=== PATIENT | female | born 1960 | race Hispanic/Latino ===

== ENCOUNTER 2018-07-31 22:54 | Emergency (ER) | payer OTHER ==
[2018-07-31] MEDS ORDERED: SODIUM CHLORIDE 0.9% 1000ML 1,000 ML IV ONE (23:16)
[2018-07-31] MEDS ORDERED: MORPHINE SULFATE 4 MG/1ML SYG ONE (23:16)
[2018-07-31] MEDS ORDERED: ONDANSETRON HCL 4 MG/2 ML VIAL ONE (23:16)
[2018-07-31 23:19] LABS: BASOPHILS % (AUTO) 0.8 % (0.0-5.0); EOSINOPHILS % (AUTO) 1.6 % (0.0-8.0); HEMATOCRIT 35.2 % (36-48); MEAN CORPUSCULAR HEMOGLOBIN 29.2 pg (27.0-33.0); MEAN CORPUSCULAR HGB CONC 34.1 g/dL (32.0-36.0); MEAN CORPUSCULAR VOLUME 85.5 fL (79-99); MONOCYTES % (AUTO) 8.2 % (3.0-13.0); NEUTROPHILS % (AUTO) 60.4 % (40.0-77.0); PLATELET COUNT (AUTO) 224 K/uL (130-400); RED BLOOD CELL COUNT(AUTO) 4.11 MIL/uL (4.00-5.50); RED CELL DISTRIBUTION WIDTH 14.4 % (11.0-15.5); WHITE BLOOD COUNT (AUTO) 9.4 K/uL (4.8-10.8)
[2018-07-31 23:26] LABS: APPEARANCE,URINE Clear (CLEAR); BILIRUBIN,URINE Negative (NEGATIVE); COLOR,URINE Yellow (YELLOW); GLUCOSE, URINE (UA) >=1000 mg/dL (NEGATIVE); KETONES,URINE Negative (NEGATIVE); LEUKOCYTE ESTERASE ,URINE Trace (NEGATIVE); NITRATE,URINE Negative (NEGATIVE); OCCULT BLOOD,URINE Moderate (NEGATIVE); PROTEIN,URINE >=1000 mg/dL (NEGATIVE)
[2018-07-31 23:28] LABS: CREATININE 0.8 mg/dL (0.5-1.5); POTASSIUM 4.2 mmol/L (3.5-5.1)
[2018-07-31 23:33] LABS: ALBUMIN 2.9 g/dL (3.5-5.0); BILIRUBIN,TOTAL 0.3 mg/dL (0.2-1.0); TOTAL PROTEIN, SERUM 6.6 g/dL (6.0-8.3)
[2018-07-31 23:34] LABS: INR 0.91 (0.85-1.15); PARTIAL THROMBOPLASTIN TIME 24.9 SEC (26.3-35.5); PROTHROMBIN TIME 9.6 SEC (9.6-11.6)
[2018-07-31 23:40] LABS: BACTERIA,URINE Few /HPF (None Seen); MUCUS,URINE Moderate LPF (None Seen); RENAL EPITHELIAL CELLS,URINE Moderate /HPF (None Seen); SQUAMOUS EPITHELIAL CELL,UR Moderate /HPF (0-2); TRANSITIONAL EPI CELLS,URINE Few /HPF (None Seen)
[2018-08-01] MEDS ORDERED: ONDANSETRON HCL 4 MG/2 ML VIAL ONE (02:31)
[2018-08-01] MEDS ORDERED: MORPHINE SULFATE 2 MG/ML 1ML SYG ONE (02:31)
== END 2018-08-01 03:59 | disposition home or self-care (01) ==
LOC: EDH 22:54
DX: S20.219A Contusion of unspecified front wall of thorax, initial encounter (principal); S10.81XA Abrasion of other specified part of neck, initial encounter; Z85.3 Personal history of malignant neoplasm of breast; V49.49XA Driver injured in collision with other motor vehicles in traffic accident, initial encounter; Y93.89 Activity, other specified; Y92.488 Other paved roadways as the place of occurrence of the external cause; Y99.8 Other external cause status
CPT/HCPCS: 36415 ×2; 70450; 71260; 72125; 74177; 80053; 81001; 82550 ×2; 83690; 84484 ×2; 85025; 85610; 85730; 93005 ×2; 96374; 96375; 96376; 99285; J2270; J2405 ×2; J7030

== ENCOUNTER 2020-12-19 14:22 | Emergency (ER) | payer MEDICAID ==
[~2020-12-19] VITALS: Ht 157.5 cm; Wt 83.5 kg
[2020-12-19 16:22] LABS: HEMATOCRIT 41.9 % (36-48); MEAN CORPUSCULAR HEMOGLOBIN 29.8 pg (27.0-33.0); MEAN CORPUSCULAR HGB CONC 33.9 g/dL (32.0-36.0); MEAN CORPUSCULAR VOLUME 87.8 fL (79-99); PLATELET COUNT (AUTO) 263 K/uL (130-400); RED BLOOD CELL COUNT(AUTO) 4.77 MIL/uL (4.00-5.50); RED CELL DISTRIBUTION WIDTH 12.6 % (11.0-15.5); WHITE BLOOD COUNT (AUTO) 11.7 K/uL (4.8-10.8)
[2020-12-19 16:40] LABS: CREATININE 0.7 mg/dL (0.5-1.5); POTASSIUM 4.9 mmol/L (3.5-5.1)
[2020-12-19 16:45] LABS: ALBUMIN 2.7 g/dL (3.5-5.0); BILIRUBIN,TOTAL 0.2 mg/dL (0.2-1.0); TOTAL PROTEIN, SERUM 7.1 g/dL (6.0-8.3)
[2020-12-19 17:35] LABS: BAND NEUTROPHILS % (MANUAL) 13 % (0-2); LYMPHOCYTES % (MANUAL) 5 % (22-44); MAN.DIFF COMMENT-IMPRESSION MANUAL DIFFERENTIAL; MONOCYTES % (MANUAL) 6 % (2-9); REACTIVE LYMPHOCYTES 6 % (0-0); SEGMENTED NEUTROPHILS % 70 % (40-70)
[2020-12-19] MEDS ORDERED: 0.9%NACL 1000ML 1,000 ML IV ONE (18:00)
[2020-12-19] MEDS ORDERED: LORAZEPAM 2 MG/ML 1 ML VIAL IVP ONE (18:00)
[2020-12-19] MEDS ORDERED: MECL-226 PO (19:41)
[2020-12-19 20:35] VITALS: BP 138/72
== END 2020-12-19 20:25 | disposition home or self-care (01) ==
LOC: EDH 14:22
DX: R42 Dizziness and giddiness (principal); R11.0 Nausea; E11.9 Type 2 diabetes mellitus without complications; E78.00 Pure hypercholesterolemia, unspecified; I10 Essential (primary) hypertension; Z79.899 Other long term (current) drug therapy; Z85.3 Personal history of malignant neoplasm of breast; Z90.11 Acquired absence of right breast and nipple
CPT/HCPCS: 36415; 71045; 80053; 82948; 85025; 93005; 96360; 96361; 99285; J7030

== ENCOUNTER 2022-04-11 10:49 | Emergency (ER) | payer MEDICAID ==
[~2022-04-11] VITALS: Ht 160 cm; Wt 72.6 kg
[~2022-04-11 10:49] MED LIST: MECL-226 PO
[2022-04-11 11:27] LABS: BASOPHILS % (AUTO) 0.6 % (0.0-5.0); EOSINOPHILS % (AUTO) 1.6 % (0.0-8.0); HEMATOCRIT 37.4 % (36-48); LYMPHOCYTES % (AUTO) 30.4 % (21.0-51.0); MEAN CORPUSCULAR HEMOGLOBIN 29.2 pg (27.0-33.0); MONOCYTES % (AUTO) 7.1 % (3.0-13.0); PLATELET COUNT (AUTO) 253 K/uL (130-400); RED BLOOD CELL COUNT(AUTO) 4.35 MIL/uL (4.00-5.50); RED CELL DISTRIBUTION WIDTH 12.4 % (11.0-15.5); WHITE BLOOD COUNT (AUTO) 9.7 K/uL (4.8-10.8)
[2022-04-11] MEDS ORDERED: KETOROLAC 15MG/ML VIAL (15MG/ML) IV ONE (11:30)
[2022-04-11 11:41] LABS: POTASSIUM 4.2 mmol/L (3.5-5.1)
[2022-04-11 11:45] LABS: ALBUMIN 2.7 g/dL (3.5-5.0); TOTAL PROTEIN, SERUM 6.8 g/dL (6.0-8.3)
[2022-04-11 12:32] LABS: INR 0.93 (0.85-1.15); PROTHROMBIN TIME 9.8 SEC (9.6-11.6)
[2022-04-11 12:33] LABS: PARTIAL THROMBOPLASTIN TIME 25.1 SEC (26.3-35.5)
[2022-04-11] MEDS ORDERED: IBUP-2070 PO (12:58)
[2022-04-11 13:09] VITALS: BP 145/78
== END 2022-04-11 13:29 | disposition home or self-care (01) ==
LOC: EDH 10:49
DX: R51.9 Headache, unspecified (principal); E11.9 Type 2 diabetes mellitus without complications; I10 Essential (primary) hypertension; E78.00 Pure hypercholesterolemia, unspecified; Z85.3 Personal history of malignant neoplasm of breast; Z90.11 Acquired absence of right breast and nipple; Z98.890 Other specified postprocedural states
CPT/HCPCS: 99285; 96374; 70450; 71045; 82550; 83721; 84484; 80053; 85025; 85610; 85730; 36415; 93005; J1885

== ENCOUNTER 2023-01-03 12:05 | Emergency (ER) | payer MEDICAID ==
[~2023-01-03] VITALS: Ht 157.5 cm; Wt 79.4 kg
[~2023-01-03 12:05] MED LIST changes: +IBUP-2070 PO
[2023-01-03 12:14] VITALS: BP 181/87; PULSE 85; RESP 16; O2SAT 99
[2023-01-03] MEDS ORDERED: TETANUS/DIPHTHERIA TOXOID [ADULT] 0.5 ML VIAL IM ONE (12:30)
[2023-01-03] MEDS ORDERED: CEFTRIAXONE 1G VIAL IM ONE (14:00)
[2023-01-03] MEDS ORDERED: CEPH500B PO (16:14)
[2023-01-03] MEDS ORDERED: MUPI22O TP (16:14)
[2023-01-03] MEDS ORDERED: BACITRACIN 1 EACH PACKET TP ONE (16:39)
== END 2023-01-03 16:59 | disposition home or self-care (01) ==
LOC: EDH 12:05
DX: L03.115 Cellulitis of right lower limb (principal); E11.9 Type 2 diabetes mellitus without complications; E78.00 Pure hypercholesterolemia, unspecified; I10 Essential (primary) hypertension; Z85.3 Personal history of malignant neoplasm of breast
CPT/HCPCS: 99284; 90714; 73590; 96372; 90471; J0696

== ENCOUNTER 2023-01-16 11:19 | Emergency (ER) | payer MEDICAID ==
[~2023-01-16] VITALS: Ht 157.5 cm; Wt 78.9 kg
[~2023-01-16 11:19] MED LIST changes: +CEPH500B PO; +MUPI22O TP
[2023-01-16] MEDS ORDERED: KETOROLAC 30MG VIAL (30MG/ML) IV ONE (12:00)
[2023-01-16] MEDS ORDERED: HYDROCODONE/ACETAMINOPHEN 5/325 MG TAB PO ONE (12:00)
[2023-01-16] MEDS ORDERED: HYDRALAZINE 20MG/ML VIAL IV ONE (12:00)
[2023-01-16 12:41] LABS: BASOPHILS # (AUTO) 0.05 K/uL (0.00-0.20); BASOPHILS % (AUTO) 0.4 % (0.0-5.0); EOSINOPHILS # (AUTO) 0.12 K/uL (0.00-0.70); EOSINOPHILS % (AUTO) 1.1 % (0.0-8.0); HEMATOCRIT 35.3 % (36-48); IMMATURE GRANULOCYTE ABSOLUTE 0.03 K/uL (0-1); LYMPHOCYTES # (AUTO) 2.2 K/uL (1.0-4.8); LYMPHOCYTES % (AUTO) 19.8 % (21.0-51.0); MEAN CORPUSCULAR HEMOGLOBIN 30.1 pg (27.0-33.0); MEAN CORPUSCULAR HGB CONC 33.7 g/dL (32.0-36.0); MEAN CORPUSCULAR VOLUME 89.1 fL (79-99); MONOCYTES # (AUTO) 0.9 K/uL (0.1-1.0); MONOCYTES % (AUTO) 7.7 % (3.0-13.0); NEUTROPHILS % (AUTO) 70.7 % (40.0-77.0); PLATELET COUNT (AUTO) 292 K/uL (130-400); RED BLOOD CELL COUNT(AUTO) 3.96 MIL/uL (4.00-5.50); RED CELL DISTRIBUTION WIDTH 12.7 % (11.0-15.5); WHITE BLOOD COUNT (AUTO) 11.3 K/uL (4.8-10.8)
[2023-01-16 12:51] LABS: CREATININE 0.9 mg/dL (0.5-1.5)
[2023-01-16 12:56] LABS: ALBUMIN 2.9 g/dL (3.5-5.0); BILIRUBIN,TOTAL 0.2 mg/dL (0.2-1.0); TOTAL PROTEIN, SERUM 6.9 g/dL (6.0-8.3)
[2023-01-16] MEDS ORDERED: ACET-2079 PO (13:14)
[2023-01-16 13:20] LABS: B-TYPE NATRIURETIC PEPTIDE 98 pg/mL (0-100)
[2023-01-16 13:42] VITALS: BP 141/67; PULSE 86; RESP 16; O2SAT 100
[2023-01-17] MEDS ORDERED: HYDR-3420 PO (22:39)
== END 2023-01-16 18:15 | disposition home or self-care (01) ==
LOC: EDH 11:19
DX: S80.811A Abrasion, right lower leg, initial encounter (principal); I16.0 Hypertensive urgency; E11.9 Type 2 diabetes mellitus without complications; E78.00 Pure hypercholesterolemia, unspecified; Z79.899 Other long term (current) drug therapy; Z98.890 Other specified postprocedural states; X58.XXXA Exposure to other specified factors, initial encounter; Y93.89 Activity, other specified; Y92.89 Other specified places as the place of occurrence of the external cause; Y99.8 Other external cause status
CPT/HCPCS: 99285; 96374; 71045; 96375; 84484; 80053; 83880; 85025; 36415; 93005; J0360; J1885

== ENCOUNTER 2023-01-17 18:24 | Emergency (ER) | payer MEDICAID ==
[~2023-01-17] VITALS: Ht 157.5 cm; Wt 78.9 kg
[~2023-01-17 18:24] MED LIST changes: +ACET-2079 PO
[2023-01-17 19:09] LABS: BASOPHILS # (AUTO) 0.07 K/uL (0.00-0.20); BASOPHILS % (AUTO) 0.7 % (0.0-5.0); EOSINOPHILS % (AUTO) 2.1 % (0.0-8.0); IMMATURE GRANULOCYTE ABSOLUTE 0.02 K/uL (0-1); LYMPHOCYTES # (AUTO) 2.7 K/uL (1.0-4.8); LYMPHOCYTES % (AUTO) 28.2 % (21.0-51.0); MEAN CORPUSCULAR HEMOGLOBIN 30.3 pg (27.0-33.0); MEAN CORPUSCULAR HGB CONC 34.6 g/dL (32.0-36.0); MEAN CORPUSCULAR VOLUME 87.5 fL (79-99); MONOCYTES # (AUTO) 0.8 K/uL (0.1-1.0); MONOCYTES % (AUTO) 8.3 % (3.0-13.0); NEUTROPHILS # (AUTO) 5.7 K/uL (1.8-7.7); NEUTROPHILS % (AUTO) 60.5 % (40.0-77.0); PLATELET COUNT (AUTO) 285 K/uL (130-400); RED CELL DISTRIBUTION WIDTH 12.4 % (11.0-15.5); WHITE BLOOD COUNT (AUTO) 9.4 K/uL (4.8-10.8)
[2023-01-17 19:18] LABS: CREATININE 0.7 mg/dL (0.5-1.5); POTASSIUM 4.4 mmol/L (3.5-5.1)
[2023-01-17 19:25] LABS: ALBUMIN 2.5 g/dL (3.5-5.0); BILIRUBIN,TOTAL 0.3 mg/dL (0.2-1.0); TOTAL PROTEIN, SERUM 6.7 g/dL (6.0-8.3)
[2023-01-17] MEDS ORDERED: HYDRALAZINE 20MG/ML VIAL IV ONE (21:00)
[2023-01-17 21:05] LABS: APPEARANCE,URINE CLEAR (CLEAR); BILIRUBIN,URINE NEGATIVE (NEGATIVE); COLOR,URINE COLORLESS (YELLOW); GLUCOSE, URINE (UA) 50 mg/dL (NEGATIVE); KETONES,URINE NEGATIVE (NEGATIVE); LEUKOCYTE ESTERASE ,URINE NEGATIVE Leu/uL (NEGATIVE); NITRATE,URINE NEGATIVE (NEGATIVE); OCCULT BLOOD,URINE NEGATIVE (NEGATIVE); PROTEIN,URINE 100 mg/dL (NEGATIVE); UROBILINOGEN,URINE 0.2 mg/dL (0.2-1.0)
[2023-01-17 21:06] LABS: ADD UA MICROSCOPIC YES
[2023-01-17 21:09] LABS: BACTERIA,URINE RARE /HPF (None Seen); SQUAMOUS EPITHELIAL CELL,UR FEW /HPF (0-2); TRANSITIONAL EPI CELLS,URINE RARE /HPF (None Seen)
[2023-01-17 21:47] LABS: MAGNESIUM 1.7 mg/dL (1.80-2.40); THYROID STIMULATING HORMONE 4.83 uIU/mL (0.36-3.74)
[2023-01-17 22:33] VITALS: BP 126/66; PULSE 82; RESP 18; O2SAT 98
[2023-01-17] MEDS ORDERED: HYDR-3420 PO (22:39)
[2023-01-17] MEDS ORDERED: MAGNESIUM OXIDE 400 MG TABLET PO ONE (23:00)
== END 2023-01-17 22:56 | disposition home or self-care (01) ==
LOC: EDH 18:24
DX: I10 Essential (primary) hypertension (principal); E83.42 Hypomagnesemia; E11.9 Type 2 diabetes mellitus without complications; E78.00 Pure hypercholesterolemia, unspecified; Z79.899 Other long term (current) drug therapy; Z98.890 Other specified postprocedural states
CPT/HCPCS: 99285; 96374; 71045; 84443; 83735; 84484; 80053; 85025; 81001; 36415; 93005; J0360

== ENCOUNTER 2023-01-20 11:25 | Emergency (ER) | payer MEDICAID ==
[~2023-01-20] VITALS: Ht 157.5 cm; Wt 72.6 kg
[~2023-01-20 11:25] MED LIST changes: +HYDR-3420 PO
[2023-01-20 11:36] VITALS: O2SAT 100
[2023-01-20 11:38] VITALS: BP 151/72; PULSE 76; RESP 16
== END 2023-01-20 13:55 | disposition home or self-care (01) ==
LOC: EDH 11:25
DX: I10 Essential (primary) hypertension (principal); F41.9 Anxiety disorder, unspecified; E11.9 Type 2 diabetes mellitus without complications; E78.00 Pure hypercholesterolemia, unspecified; Z85.3 Personal history of malignant neoplasm of breast
CPT/HCPCS: 99281

== ENCOUNTER 2023-06-01 12:36 | Emergency (ER) | payer MEDICAID ==
[~2023-06-01] VITALS: Ht 162.6 cm; Wt 81.6 kg
[2023-06-01 13:22] LABS: BASOPHILS # (AUTO) 0.04 K/uL (0.00-0.20); BASOPHILS % (AUTO) 0.4 % (0.0-5.0); EOSINOPHILS # (AUTO) 0.09 K/uL (0.00-0.70); HEMATOCRIT 37.4 % (36-48); IMMATURE GRANULOCYTE ABSOLUTE 0.04 K/uL (0-1); LYMPHOCYTES # (AUTO) 1.3 K/uL (1.0-4.8); MEAN CORPUSCULAR VOLUME 88.2 fL (79-99); MONOCYTES # (AUTO) 0.6 K/uL (0.1-1.0); MONOCYTES % (AUTO) 5.9 % (3.0-13.0); NEUTROPHILS # (AUTO) 7.3 K/uL (1.8-7.7); NEUTROPHILS % (AUTO) 78.3 % (40.0-77.0); PLATELET COUNT (AUTO) 255 K/uL (130-400); RED BLOOD CELL COUNT(AUTO) 4.24 MIL/uL (4.00-5.50); RED CELL DISTRIBUTION WIDTH 12.4 % (11.0-15.5); WHITE BLOOD COUNT (AUTO) 9.3 K/uL (4.8-10.8)
[2023-06-01 13:27] LABS: CREATININE 0.8 mg/dL (0.5-1.0); POTASSIUM 4.4 mmol/L (3.5-5.1)
[2023-06-01 13:34] LABS: ALBUMIN 2.6 g/dL (3.5-5.0); BILIRUBIN,TOTAL 0.3 mg/dL (0.2-1.0); MAGNESIUM 1.5 mg/dL (1.80-2.40); TOTAL PROTEIN, SERUM 6.7 g/dL (6.0-8.3)
[2023-06-01] MEDS: MAGNESIUM 2GM PREMIX 50ML 50 ML IV SCH (13:52)
[2023-06-01] MEDS: ONDANSETRON 4MG INJ IVP ONE (14:11)
[2023-06-01] MEDS: LACTATED RINGERS 1000ML 1,000 ML IV ONE (14:11)
[2023-06-01] MEDS ORDERED: IOHEXOL 350 MG/ML 100ML INFUS..BTL IV ONE (14:48)
[2023-06-01] MEDS ORDERED: MECL-160 PO (19:05)
[2023-06-01] MEDS ORDERED: AMLO-257 PO (19:05)
[2023-06-01 19:07] LABS: APPEARANCE,URINE CLEAR (CLEAR); BILIRUBIN,URINE NEGATIVE (NEGATIVE); GLUCOSE, URINE (UA) TRACE mg/dL (NEGATIVE); KETONES,URINE NEGATIVE (NEGATIVE); LEUKOCYTE ESTERASE ,URINE NEGATIVE Leu/uL (NEGATIVE); NITRATE,URINE NEGATIVE (NEGATIVE); PH,URINE 6.5 (5.0-8.0); PROTEIN,URINE 100 mg/dL (NEGATIVE); UROBILINOGEN,URINE 0.2 mg/dL (0.2-1.0)
[2023-06-01 19:08] LABS: ADD UA MICROSCOPIC YES; COLOR,URINE STRAW (YELLOW)
[2023-06-01 19:10] LABS: BACTERIA,URINE RARE /HPF (None Seen); SQUAMOUS EPITHELIAL CELL,UR RARE /HPF (0-2)
[2023-06-01] MEDS: AMLODIPINE 5 MG TAB PO ONE (19:22)
[2023-06-01] MEDS: NITROGLYCERIN 1GM OINT 1 INCH/1GM TD ONE (20:16)
[2023-06-01 21:37] VITALS: BP 133/75; PULSE 81; RESP 18; O2SAT 97
== END 2023-06-01 22:24 | disposition left against medical advice (07) ==
LOC: EDH 12:36
DX: I67.4 Hypertensive encephalopathy (principal); I16.1 Hypertensive emergency; I10 Essential (primary) hypertension; E11.9 Type 2 diabetes mellitus without complications; E78.00 Pure hypercholesterolemia, unspecified; Z85.3 Personal history of malignant neoplasm of breast
CPT/HCPCS: 99285; 74177; 96365; 71045; 96366; 96375; 83735; 84484; 80053; 85025; 81001; 36415; 93005; J3475; J7120; J2405; Q9967

== ENCOUNTER 2023-08-27 11:57 | Emergency (ER) | payer MEDICAID ==
[~2023-08-27] VITALS: Ht 157.5 cm; Wt 79.8 kg
[~2023-08-27 11:57] MED LIST changes: +AMLO-257 PO; +MECL-302 PO
[2023-08-27] MEDS: HYDRALAZINE 20MG/ML VIAL IV STA (12:21)
[2023-08-27 12:49] LABS: BASOPHILS # (AUTO) 0.06 K/uL (0.00-0.20); BASOPHILS % (AUTO) 0.7 % (0.0-5.0); EOSINOPHILS % (AUTO) 2.3 % (0.0-8.0); HEMATOCRIT 36.4 % (36-48); IMMATURE GRANULOCYTE ABSOLUTE 0.03 K/uL (0-1); LYMPHOCYTES # (AUTO) 2.4 K/uL (1.0-4.8); MEAN CORPUSCULAR HEMOGLOBIN 29.9 pg (27.0-33.0); MEAN CORPUSCULAR HGB CONC 35.2 g/dL (32.0-36.0); MONOCYTES # (AUTO) 0.6 K/uL (0.1-1.0); MONOCYTES % (AUTO) 7.1 % (3.0-13.0); NEUTROPHILS # (AUTO) 5.3 K/uL (1.8-7.7); NEUTROPHILS % (AUTO) 61.6 % (40.0-77.0); PLATELET COUNT (AUTO) 270 K/uL (130-400); RED BLOOD CELL COUNT(AUTO) 4.28 MIL/uL (4.00-5.50); RED CELL DISTRIBUTION WIDTH 12.5 % (11.0-15.5); WHITE BLOOD COUNT (AUTO) 8.6 K/uL (4.8-10.8)
[2023-08-27 13:08] LABS: POTASSIUM 4.1 mmol/L (3.5-5.1)
[2023-08-27 13:25] LABS: B-TYPE NATRIURETIC PEPTIDE 17 pg/mL (0-100)
[2023-08-27 15:17] VITALS: BP 141/75; PULSE 74; RESP 20; O2SAT 98
[2023-08-31] MEDS ORDERED: LISI1TAB53 PO (15:05)
[2023-08-31] MEDS ORDERED: AMLO-258 PO (15:05)
[2023-08-31] MEDS ORDERED: ATOR-2 PO (15:05)
[2023-08-31] MEDS ORDERED: INSU100I3 SQ (15:07)
== END 2023-08-27 15:38 | disposition home or self-care (01) ==
LOC: EDH 11:57
DX: R51.9 Headache, unspecified (principal); I10 Essential (primary) hypertension; E11.9 Type 2 diabetes mellitus without complications; E78.00 Pure hypercholesterolemia, unspecified; Z79.899 Other long term (current) drug therapy; Z98.890 Other specified postprocedural states
CPT/HCPCS: 36415; 70450; 71045; 80048; 83880; 84484; 85025; 93005

== ENCOUNTER 2024-03-28 13:21 | Emergency (ER) | payer MEDICAID ==
[~2024-03-28] VITALS: Ht 154.9 cm; Wt 78.5 kg
[~2024-03-28 13:21] MED LIST changes: -ACET-2079 PO; -AMLO-257 PO; +ATOR-2 PO; -CEPH500B PO; -HYDR-3420 PO; -IBUP-2070 PO; +INSU100I3 SQ; +LEVO-70 PO; +LOSA-418 PO; -MECL-226 PO; +NIFE-40 PO; +TRAZ-253 PO
--- NOTE | 2024-03-28 13:48 | ERN ---
ED Note History of Present Illness Stated Complaint: HIGH BLOOD PRESSURE Chief Complaint: Hypertension Time Seen by MD: 13:23 Dictation: Patient is a 63-year-old female with a past medical history of diabetes type 2, hyperlipidemia, hypertension, CKD who presented to the ER complaining of blood pressure reading systolic above 200 at home. The patient recently was started/change medication for blood pressure she was confused which medication to take. She did says that she took some of her medication but no all. She is taking nifedipine 60 mg, losartan 50 mg, hydralazine and medication for kidney kidney disease also. Initial workup in the ER blood pressure systolic was 192. The patient is alert, no confusion. No headache. Allergies: Coded Allergies: No Known Allergies (Unverified Allergy, Unknown, 12/19/20) Home Meds Active Scripts Levofloxacin (Levofloxacin) 500 Mg Tablet, 500 MG PO DAILY for 5 Days, #5 TAB Prov:KATIE KNOTT MD 09/03/23 Trazodone HCl (Desyrel) 50 Mg Tab, 100 MG PO HS, #30 TAB 0 Refills Prov:KATIE KNOTT MD 09/03/23 Nifedipine (Nifedipine ER) 30 Mg Tab.er.24, 60 MG PO BID, #60 TAB 0 Refills Prov:KATIE KNOTT MD 09/03/23 Losartan Potassium (Cozaar) 50 Mg Tablet, 50 MG PO BID, #60 TAB 0 Refills Prov:KATIE KNOTT MD 09/03/23 Meclizine HCl (Meclizine HCl) 25 Mg Tablet, 25 MG PO TID for vertigo, #15 TAB 0 Refills Prov:YESICA HARRISON MD 06/01/23 Mupirocin (Bactroban 2% Oint) 2 % Oint, 1 APPL TP BID, #1 TUBE 0 Refills Prov:BENJAMIN MÉNDEZ MD 01/03/23 Reported Medications Insulin Aspart (Novolog Flexpen) 100 Unit/Ml (3 Ml) Insuln.pen, 0 SQ BIDMEALS, SYRINGE 08/31/23 Atorvastatin Calcium (Atorvastatin Calcium) 80 Mg Tablet, 80 MG PO HS, TAB 08/31/23 Past Medical History Past Medical History: Cancer, Diabetes-Type II, High Cholesterol Additional Past Medical Hx: HX OF BREAST CA; vertigo Surgical History: Other Surgical History Other: RT BREAST MASTECTOMY Social History: Negative, Lives with family History: Not Applicable Review of System Dictation NEGATIVE EXCEPT PER HPI Constitutional: Negative for fever,chills, and weight loss Eyes: Negative for injury, pain,redness, and discharge ENT: Negative for injury,pain or swelling Cardiovascular: denies chest pain, palpitations, and edema Respiratory: Negative for shortness of breath, cough, and wheezing, Abdomen/GI: Negative for abdominal pain, nausea, vomiting, diarrhea, and constipation Back: Negative for injury and pain : Negative for injury, bleeding and discharge MS/Extremity: Negative for injury and deformity Skin: Negative for rash, and discoloration Neuro: Negative for headache, weakness, numbness, tingling, and seizure Psych: Negative for suicide ideation, homicidal ideation, and hallucinations Initial Vital Sign VS Vital Signs Date Time Temp Pulse Resp B/P (MAP) Pulse Ox O2 Delivery O2 Flow Rate FiO2 03/28/24 13:29 97.9 86 18 192/68 98 Room Air 03/28/24 14:32 0 21 Physical Exam Dictation General: awake, alert, NAD Head/Face: Normocephalic, atraumatic Eyes: PERRL, EOMI, vision at baseline ENT: oral cavity clear, TMs clear, no signs of infection Neck: Trachea midline, supple, no nuchal rigidity Cardiovascular: RRR, normal S1/S2, No MRGs, no JVD Respiratory: CTAB, no respiratory distress, No rales or wheezes Abdomen: Soft , no tender Skin: Warm, dry, normal turgor, no rash MS/Extremity: Pulses equal, no cyanosis, neurovascular intact, FROM Neuro: COAx4, GCS 15, strength 5/5, CN 2-12 intact, normal cerebellar exam, normal gait, Psych: Normal behavior, mood, and affect normal ED Course ED Course Orders Procedure Category Date Status Time Hydralazine 10mg Tab PHA 03/28/24 In Process (Apresoline 10mg Ta 14:00 Losartan 50 Mg Tablet PHA 03/28/24 Complete (Cozaar 50 Mg Tab) 14:00 Current Medications Medications (Trade) Dose Ordered Sig/Melba Route PRN Reason Start Time Stop Time Status Last Admin Dose Admin Hydralazine HCl (APRESOLine 10MG TAB) 50 mg ONCE PO 03/28/24 14:00 04/27/24 13:59 03/28/24 13:52 Losartan Potassium (CozAAR 50 mg TAB) 50 mg ONCE ONCE PO 03/28/24 14:00 03/28/24 14:01 DC 03/28/24 13:52 Vital Signs Date Time Temp Pulse Resp B/P (MAP) Pulse Ox O2 Delivery O2 Flow Rate FiO2 03/28/24 14:32 97.9 88 18 146/69 98 Room Air* 0 21 03/28/24 13:29 97.9 86 18 192/68 98 Room Air Medical Decision Making MDM 63-year-old female with uncontrolled blood pressure. Patient is asymptomatic. I will proceed with oral antihypertensive medication Losartan 50 mg and hydralazine 50 mg once Plan to re-evaluate the patient after 30 minutes given medication. Patient was re-evaluate, blood pressure improved now is 146/69. Patient is hemodynamically stable. We will proceed with the discharge, she must follow up with her primary care physician for adjustment of her medication. I given instruction how to take her medication, it was labeled for the patient. DX & DISP Disposition: Discharge Departure Impression: Primary Impression: Uncontrolled hypertension Additional Impression: Medication administered in error Condition: Stable Additional Instructions: RETURN TO ER FOR ANY ACUTE OR WORSENING SYMPTOMS. FOLLOW-UP IN 1-2 DAYS WITH PRIMARY PROVIDER FOR RECHECK OF TODAY'S SYMPTOMS. Referrals: SWATI GONZALEZ MD (PCP) Time of Disposition: 14:37 ABELARDO ALVAREZ MD Mar 28, 2024 13:48
[2024-03-28] MEDS: hydrALAZine HCL 10 MG TABLET PO SCH (13:52)
[2024-03-28] MEDS: LoSARTan 50 MG TABLET PO ONE (13:52)
[2024-03-28 14:32] VITALS: BP 146/69; PULSE 88; RESP 18; TEMP 97.9; O2SAT 98
== END 2024-03-28 14:43 | disposition home or self-care (01) ==
LOC: EDH 13:21
DX: I12.9 Hypertensive chronic kidney disease with stage 1 through stage 4 chronic kidney disease, or unspecified chronic kidney disease (principal); E11.22 Type 2 diabetes mellitus with diabetic chronic kidney disease; N18.9 Chronic kidney disease, unspecified; E11.9 Type 2 diabetes mellitus without complications; E78.00 Pure hypercholesterolemia, unspecified; Z79.899 Other long term (current) drug therapy; Z85.3 Personal history of malignant neoplasm of breast
CPT/HCPCS: 99283